=== PATIENT | male | born 1970 | race Caucasian/White ===

== ENCOUNTER 2022-10-14 07:26 | Emergency (ER) | payer OTHER ==
[2022-10-14 08:52] LABS: HEMATOCRIT 41.5 % (40.0-54.0); HEMOGLOBIN 14.1 g/dL (13.0-18.0); MEAN CORPUSCULAR HEMOGLOBIN 29.4 pg (27.0-32.0); MEAN PLATELET VOLUME 10.6 fL (6.0-10.0); RED BLOOD CELL COUNT 4.79 M/uL (4.50-6.50); RED CELL DISTRIBUTION WIDTH 13.3 % (11.0-16.0); WHITE BLOOD CELL COUNT,WBC 13.7 K/uL (4.0-11.0)
[2022-10-14] MEDS ORDERED: Oxymetazoline 0.05% Nasal Spray 15 ML Bottle ONE (08:53)
[2022-10-14] MEDS ORDERED: Oxymetazoline 0.05% Nasal Spray 15 ML Bottle NAS ONE (08:55)
[2022-10-14 09:10] LABS: INR 3.8 (1.0-3.5)
== END 2022-10-14 09:27 | disposition home or self-care (01) ==
LOC: LB.ED 07:26
DX: R04.0 Epistaxis (principal); R79.1 Abnormal coagulation profile; E78.00 Pure hypercholesterolemia, unspecified; Z79.01 Long term (current) use of anticoagulants
CPT/HCPCS: 30903; 36415; 85027; 85610; 99283; A9270-GY